=== PATIENT | female | born 1995 | race Caucasian/White ===

== ENCOUNTER 2022-09-22 05:32 | Inpatient (IN) ==
[2022-09-22] MEDS ORDERED: SODIUM CHLORIDE 0.9% 1000ML 1,000 ML IV STA (05:40)
[2022-09-22] MEDS ORDERED: ONDANSETRON INJ 2 MG/ML 2 ML VIAL IV STA (05:40)
[2022-09-22] MEDS ORDERED: FAMOTIDINE 20MG IV PUSH 20 MG/5 ML SYR IV STA (06:02)
--- NOTE | 2022-09-22 06:05 | Emergency Department Note ---
Impression & Plan Abdominal pain, epigastric, UTI (urinary tract infection) Case signed out to Dr. Jackson at change of shift ED Provider Note NAME: JAYLEN MICHAUD AGE: 27 SEX: F ARRIVES VIA: Walk-In INFORMANT: Patient and her mother ED PROVIDER(S): Isi William DO CHIEF COMPLAINT: Nausea/vomiting PLAN: Disposition: Case was signed out to Dr. Jackson at change of shift Condition: Fair MEDICAL DECISION MAKING: This is a 27-year-old female patient who presents to the emergency department complaining of epigastric abdominal pain, nausea and vomiting. Patient has had episodes of intermittent nausea/vomiting and burping over the past 4 days. She has had episodes similar to this previously but they have not lasted quite this long. Laboratory studies show elevated transaminases and total bilirubin as well as evidence of urinary tract infection. Patient was treated with IV Rocephin for her UTI. She will go for right upper quadrant ultrasound to further evaluate the gallbladder. The case will be signed out to Dr. Jackson at change of shift awaiting results of the ultrasound. Triage Nursing notes reviewed and agree with them. Additional history obtained from patient's mother is at the bedside Vital Signs: reviewed and unremarkable Differential diagnosis: GERD, viral gastritis, acute cholecystitis, pancreatitis ER treatment provided: IV normal saline bolus IV Pepcid IV Zofran IV Rocephin Diagnostics interpreted by me: Laboratory studies: See below Imaging studies: Right upper quadrant ultrasound: Pending HPI: 27/F arrives for evaluation of epigastric abdominal pain and nausea/vomiting. Patient has had episodes of intermittent nausea/vomiting and burping over the past 4 days with associated epigastric abdominal pain. Patient has had generalized bloating with intermittent episodes of increasing epigastric discomfort and persistent vomiting. PAST MEDICAL HISTORY:None PAST SURGICAL HISTORY:None FAMILY HISTORY:None SOCIAL HISTORY:Patient lives in [place] and works as an portfolio accountant; she rarely drinks alcohol HOME MEDICATIONS:None ALLERGIES:None VITALS:See Below PHYSICAL EXAMINATION: HEENT: Head - normocephalic and atraumatic. Pupils are equal, round, and reactive to light. Extraocular eye muscles are intact, and sclera are anicteric. Nose - moist nasal mucosa without discharge. Mouth - moist buccal mucosa. Oropharynx is nonerythematous and there is no tonsillar exudate or e roman noted. Neck: Supple; no cervical lymphadenopathy or thyromegaly Heart: Regular rate and rhythm. There is a normal S1 and S2 with no murmurs, clicks, or gallops appreciated. Lungs: Clear to auscultation bilaterally with no wheezes, rales, or rhonchi. Abdomen: Soft, completely nontender, nondistended, with good bowel sounds. There are no palpable pulsatile masses or hepatosplenomegaly. There is no guarding, rigidity, or rebound noted. Extremities: No evidence of cyanosis, clubbing, or edema. There are easily palpable peripheral pulses. Skin: warm and dry with good turgor and no rashes. ED COURSE: Times/Reassessments: 545: Patient was evaluated in room A-11. A complete history and physical was performed. An IV lock was initiated and labs were drawn as above. The patient was given dose of IV Zofran for nausea and a dose of IV Pepcid. Started on normal saline drip. Upon repeat evaluation, patient went on to tell me that she has been having some urinary symptoms which include cramping with urination. I reviewed some laboratory test there is evidence of UTI. The patient will be treated with IV Rocephin. She will go for ultrasound of her gallbladder. The case was signed out to Dr. Jackson at change of shift awaiting results of a right upper quadrant ultrasound to further evaluate the gallbladder. Isi William DO Past Med/Surg History Social History Smoking Status: Never smoker Preferred Language: Occitan Feels Safe at Home: Yes Results & Data (ED) Vital Signs Vital Signs - 24 hr 09/22/22 05:38 09/22/22 06:15 09/22/22 06:30 Temperature 36.7 C Temperature Source Temporal Artery Scan Pulse Rate 83 57 L Pulse Rate from SpO2 Sensor Respiratory Rate 18 Respiratory Effort / Characteristics Non-Labored Spontaneous Respiratory Depth Normal Blood Pressure 132/85 145/65 H Blood Pressure Mean 100 91 Blood Pressure Position Sitting Pulse Oximetry 99 Oxygen Delivery Method Room Air Sepsis Recent Fever Within 48 Hours No Sepsis New/Unexplained Change in Mental Status No Sepsis Action Taken by Nursing No Action Required 09/22/22 06:30 Temperature Temperature Source Pulse Rate 61 Pulse Rate from SpO2 Sensor 62 Respiratory Rate 19 Respiratory Effort / Characteristics Respiratory Depth Blood Pressure Blood Pressure Mean Blood Pressure Position Pulse Oximetry 100 Oxygen Delivery Method Room Air Sepsis Recent Fever Within 48 Hours Sepsis New/Unexplained Change in Mental Status Sepsis Action Taken by Nursing Laboratory Data 09/22/22 05:54 09/22/22 05:54 Lab Results 09/22/22 09/22/22 09/22/22 Range/Units 05:54 05:54 05:54 WBC 8.86 (4.8-10.8) K/ul RBC 4.78 (4.20-5.40) M/uL Hgb 12.6 (12.0-16.0) g/dl Hct 39.2 (37.0-47.0) % MCV 82.0 (80.0-100.0) fL MCH 26.4 (25.0-34.0) pg MCHC 32.1 (32.0-36.0) g/dL RDW Std Deviation 43.8 (36.4-46.3) fL RDW Coeff of Jessica 14.8 H (11.5-14.5) % Plt Count 381 (130-400) K/uL MPV 9.8 (9.4-12.4) fL Immature Gran % (Auto) 0.5 % Neut % (Auto) 73.0 % Lymph % (Auto) 17.5 % Mellette % (Auto) 7.3 % Eos % (Auto) 1.4 % Baso % (Auto) 0.3 % Neut # (Auto) 6.47 (1.40-6.50) K/uL Lymph # (Auto) 1.55 (1.2-3.4) K/uL Mellette # (Auto) 0.65 H (0.11-0.59) K/uL Eos # (Auto) 0.12 (0-0.50) K/uL Baso # (Auto) 0.03 (0-0.2) K/uL Immature Gran # (Auto) 0.04 (0.01-0.20) K/uL Sodium 135 L (136-145) mmol/L Potassium 4.4 (3.5-5.1) mmol/L Chloride 101 (98-107) mmol/L Carbon Dioxide 24 (21-32) mmol/L Anion Gap 10 (3-11) BUN 9 (6-23) mg/dl Creatinine 0.67 (0.6-1.2) mg/dl Est Cr Clr Drug Dosing 177.6 ml/min Est GFR ( Amer) 140.6 ml/min Est GFR (Non-Af Amer) 121.3 ml/min BUN/Creatinine Ratio 13.4 (10-20) Glucose 118 H (70-99(Fasting)) mg/dl Calcium 9.1 (8.6-10.3) mg/dl Total Bilirubin 1.9 H (0.2-1.0) mg/dl AST 567 H (13-39) U/L Alkaline Phosphatase 202 H (34-104) U/L Total Protein 7.7 (6.0-8.3) gm/dl Albumin 4.2 (3.4-5.0) gm/dl Globulin 3.5 (2.5-4.0) gm/dl Albumin/Globulin Ratio 1.2 (0.9-2) Lipase 18 (11-82) U/L HCG, Qual Negative (Negative) Urine Color Urine Appearance (Clear) Urine pH (4.5-7.5) Ur Specific Elwin (1.000-1.030) Urine Protein (Negative) Urine Glucose (UA) (Negative) Urine Ketones (Negative) Urine Blood (Negative) Urine Nitrite (Negative) Urine Bilirubin (Negative) Urine Urobilinogen (Negative) Ur Leukocyte Esterase (Negative) Urine WBC (Auto) (0-5) /hpf Urine RBC (Auto) (0-4) /hpf U Hyaline Cast (Auto) (0-5) /lpf U Epithel Cells (Auto) (0-5) /lpf Urine Bacteria (Auto) (Negative) Urine Crystals Calcium Oxalate Crystal (None Prsent) Amorphous Sediment (None Prsent) 09/22/22 Range/Units 05:54 WBC (4.8-10.8) K/ul RBC (4.20-5.40) M/uL Hgb (12.0-16.0) g/dl Hct (37.0-47.0) % MCV (80.0-100.0) fL MCH (25.0-34.0) pg MCHC (32.0-36.0) g/dL RDW Std Deviation (36.4-46.3) fL RDW Coeff of Jessica (11.5-14.5) % Plt Count (130-400) K/uL MPV (9.4-12.4) fL Immature Gran % (Auto) % Neut % (Auto) % Lymph % (Auto) % Mellette % (Auto) % Eos % (Auto) % Baso % (Auto) % Neut # (Auto) (1.40-6.50) K/uL Lymph # (Auto) (1.2-3.4) K/uL Mellette # (Auto) (0.11-0.59) K/uL Eos # (Auto) (0-0.50) K/uL Baso # (Auto) (0-0.2) K/uL Immature Gran # (Auto) (0.01-0.20) K/uL Sodium (136-145) mmol/L Potassium (3.5-5.1) mmol/L Chloride (98-107) mmol/L Carbon Dioxide (21-32) mmol/L Anion Gap (3-11) BUN (6-23) mg/dl Creatinine (0.6-1.2) mg/dl Est Cr Clr Drug Dosing ml/min Est GFR ( Amer) ml/min Est GFR (Non-Af Amer) ml/min BUN/Creatinine Ratio (10-20) Glucose (70-99(Fasting)) mg/dl Calcium (8.6-10.3) mg/dl Total Bilirubin (0.2-1.0) mg/dl AST (13-39) U/L Alkaline Phosphatase (34-104) U/L Total Protein (6.0-8.3) gm/dl Albumin (3.4-5.0) gm/dl Globulin (2.5-4.0) gm/dl Albumin/Globulin Ratio (0.9-2) Lipase (11-82) U/L HCG, Qual (Negative) Urine Color Dark Yellow Urine Appearance Cloudy A (Clear) Urine pH 5.0 (4.5-7.5) Ur Specific Elwin 1.037 H (1.000-1.030) Urine Protein Trace H (Negative) Urine Glucose (UA) Negative (Negative) Urine Ketones Trace H (Negative) Urine Blood Negative (Negative) Urine Nitrite Positive A (Negative) Urine Bilirubin 1+ H (Negative) Urine Urobilinogen Negative (Negative) Ur Leukocyte Esterase Trace H (Negative) Urine WBC (Auto) 1-5 (0-5) /hpf Urine RBC (Auto) 0-4 (0-4) /hpf U Hyaline Cast (Auto) 5-10 H (0-5) /lpf U Epithel Cells (Auto) >30 H (0-5) /lpf Urine Bacteria (Auto) 2+ H (Negative) Urine Crystals Not Reportable Calcium Oxalate Crystal Present A (None Prsent) Amorphous Sediment Present A (None Prsent) Administered Medications Discontinued Medications Sodium Chloride (Nss 1000ml) 1,000 mls @ 999 mls/hr IV .Q1H1M STA Stop: 09/22/22 06:40 Last Admin: 09/22/22 05:57 Dose: 999 mls/hr Documented By: Famotidine (Pepcid 20mg Iv Push) 20 mg in 5 mls @ 2.5 mls/min IV NOW STA Stop: 09/22/22 06:03 Last Admin: 09/22/22 06:05 Dose: 2.5 mls/min Documented By: Ondansetron HCl (Ondansetron Inj 2 Mg/Ml 2 Ml Vial) 4 mg IV NOW STA Stop: 09/22/22 05:41 Last Admin: 09/22/22 05:59 Dose: 4 mg Documented By: Discharge Plan Visit Data Chief Complaint: Abdominal Pain Stated Complaint: ABDOMINAL PAIN, VOMITING, NAUSEA ED Provider: Sid Jackson Discharge Problem: Abdominal pain, epigastric, UTI (urinary tract infection) Forms Stand Alone Forms: [facility] Referrals Referrals: PCP,NO [Primary Care Provider] -
[2022-09-22 06:11] LABS: Appearance Urine Cloudy (Clear); Blood Urine Negative (Negative); Color Urine Dark Yellow; Glucose Urine UA Negative (Negative); Ketones Urine Trace (Negative); Leukocyte Esterase Urine Trace (Negative); Nitrite Urine Positive (Negative); Protein Urine Trace (Negative); Specific Gravity Urine 1.037 (1.000-1.030); Urobilinogen Urine Negative (Negative)
[2022-09-22 06:12] LABS: Basophils # (auto) 0.03 K/uL (0-0.2); Basophils % (auto) 0.3 %; Eosinophils # (auto) 0.12 K/uL (0-0.50); Eosinophils % (auto) 1.4 %; Hematocrit (blood only) 39.2 % (37.0-47.0); Hemoglobin 12.6 g/dl (12.0-16.0); Immature Granulocytes # (auto) 0.04 K/uL (0.01-0.20); Immature Granulocytes % (auto) 0.5 %; Lymphocytes # (auto) 1.55 K/uL (1.2-3.4); Lymphocytes % (auto) 17.5 %; Mean Corpuscular Hemoglobin 26.4 pg (25.0-34.0); Mean Corpuscular Hgb Conc 32.1 g/dL (32.0-36.0); Mean Platelet Volume 9.8 fL (9.4-12.4); Monocytes # (auto) 0.65 K/uL (0.11-0.59); Monocytes % (auto) 7.3 %; Neutrophils # (auto) 6.47 K/uL (1.40-6.50); Platelet Count 381 K/uL (130-400); RDW Coefficient of Variation 14.8 % (11.5-14.5); RDW Standard Deviation 43.8 fL (36.4-46.3); Red Blood Count 4.78 M/uL (4.20-5.40); White Blood Count 8.86 K/ul (4.8-10.8)
[2022-09-22 06:28] LABS: Bilirubin Urine 1+ (Negative)
[2022-09-22 06:29] LABS: Albumin Globulin Ratio 1.2 (0.9-2); Albumin Level 4.2 gm/dl (3.4-5.0); BUN Creatinine Ratio 13.4 (10-20); Bilirubin,Total 1.9 mg/dl (0.2-1.0); Calcium 9.1 mg/dl (8.6-10.3); Creatinine Clr Calc Pharmacy 177.6 ml/min; Est GFR (African American) 140.6 ml/min; Est GFR (Non-African American) 121.3 ml/min; Globulin 3.5 gm/dl (2.5-4.0); Potassium 4.4 mmol/L (3.5-5.1); Total Protein 7.7 gm/dl (6.0-8.3)
[2022-09-22 06:35] LABS: Pregnancy Test, Serum Negative (Negative)
[2022-09-22 06:38] LABS: Amorphous Sediment Urine Present (None Prsent)
[2022-09-22 06:39] LABS: Calcium Oxalate Crystals Urine Present (None Prsent)
[2022-09-22 06:40] LABS: RBC Urine Automated 0-4 /hpf (0-4)
[2022-09-22 06:43] LABS: Bacteria Urine Automated 2+ (Negative); Epithelial Cell Urine Auto >30 /lpf (0-5)
[2022-09-22] MEDS ORDERED: cefTRIAXone SODIUM 1,000 MG in DEXTROSE 5% AD-VAN 50 ML IV STA (06:48)
--- NOTE | 2022-09-22 07:26 | Emergency Department Note ---
ED Visit Note Patient is a 27-year-old female who was signed out to me by Dr. William awaiting ultrasound. She has epigastric abdominal pain. Labs are suggestive of choledocholithiasis. Ultrasound was unremarkable. D/w Dr. Dowling for admission and further eval. Patient was discussed with gastroenterology and the hospitalist for further evaluation management treatment and work-up. .
--- NOTE | 2022-09-22 07:52 | Ultrasound Report ---
ULTRASOUND RIGHT UPPER QUADRANT ABDOMEN CLINICAL HISTORY: Nausea and vomiting. COMPARISON STUDY: No priors. TECHNIQUE: Real-time, grayscale, and color flow sonography of the right upper quadrant of the abdomen was performed. Images are reviewed in the transverse and longitudinal planes. FINDINGS: Liver: The liver is normal in size and echotexture. There is no intrahepatic biliary ductal dilatatio n. The main portal vein is patent. Gallbladder: The gallbladder is normal in appearance. No gallstones are identified. There is no gallb ladder wall thickening or pericholecystic fluid. A sonographic Zaysa's sign is reportedly absent. Th e common bile duct measures up to 0.5 cm in diameter. Pancreas: Visualized portions of the pancreatic head and body are normal in appearance. Right kidney: Survey images of the right kidney demonstrate normal size and echotexture. There is no hydronephrosis. Ascites: None. IMPRESSION: No acute sonographic abnormality is seen in the right upper quadrant. No gallstones are i dentified. ACT 112: Negative or not required by law. Electronically signed by: Luis Rider M.D. 09/22/2022 7:50 AM
--- NOTE | 2022-09-22 09:12 | History & Physical Report ---
Date of Service September 22, 2022 Assessment & Plan (1) Abdominal pain, epigastric: Plan: This may simply be a viral syndrome. Liver function enzymes are elevated however. Gallbladder ultrasound is negative. Will obtain MRCP. Clear liquids for now with IV fluids. Symptomatic control measures. We will consult GI if MRCP is abnormal (2) UTI (urinary tract infection): Plan: Urine cultures pending. Continue intravenous Rocephin (3) Obesity: Plan: Weight loss recommended Plan Anticipate eventual discharge to home History of Present Illness Chief Complaint: Epigastric discomfort, nausea and vomiting Primary Care Provider: NO PCP 27-year-old white female in good health except for obesity. For the past 3 to 4 days she has had epigastric pain nausea and vomiting. She presented to the ED for evaluation since she began feeling dizzy and the urine became darker. She apparently has some mild volume depletion. Liver function enzymes are elevated. Gallbladder ultrasound was negative. This probably represents a viral illness although choledocholithiasis needs to be ruled out. She will be placed in observation status. MRCP is pending. If this is abnormal then GI consultation will be requested. She denies any recent alcohol intake, frequent marijuana use, or illicit drug use. She also has an apparent UTI. She has received Rocephin which will be discontinued. Urine cultures pending. Allergies Allergy/AdvReac Type Severity Reaction Status Date / Time No Known Allergies Allergy Unverified 09/22/22 09:05 Home Medications Medication Instructions Recorded Confirmed Type No Known Home Medications 09/22/22 09/22/22 History Past Med/Surg History Social History Smoking Status: Never smoker Preferred Language: Lao Feels Safe at Home: Yes Review of Systems Review of Systems: Constitutional-no fever or chills ENT-no blurred vision, no double vision, no epistaxis, no sore throat Respiratory-no cough, no wheezing, no shortness of breath Cardiac-no palpitations, no chest pain, no syncope GI-epigastric discomfort. Nausea and vomiting. No hematemesis. No melena -urine has become dark and foul-smelling. No urinary retention, no urinary incontinence, no hematuria Musculoskeletal-no joint pain, no muscle tenderness Skin-no bruising, no rashes, no pruritus Neuro-no isolated weakness, no paresthesia, no weakness Psych-no depression, no anxiety Physical Exam Physical Exam: General-alert and oriented x3. Obese . No distress HEENT-head atraumatic and normocephalic, pupils equal and reactive to light, extraocular muscles intact Neck-no lymphadenopathy or thyromegaly, trachea midline Chest-clear to auscultation percussion. No rales wheezing or rhonchi Cardiac-regular rate and rhythm, normal S1 and S2 Abdomen-normal bowel sounds, no hepatosplenomegaly. Epigastric tenderness. No rebound or guarding. No right upper quadrant tenderness Extremities-no cyanosis, clubbing, or edema Neuro-cranial nerves II through XII intact, motor and sensory function within normal limits, strength symmetrical , no focal deficits Psych-normal affect, normal mood Results & Data Results & Data Vital Signs (Past 12 Hours) Vital Signs Temp Pulse Resp BP Pulse Ox O2 Del Method 09/22/22 08:30 65 16 09/22/22 08:20 61 18 09/22/22 08:10 57 L 15 09/22/22 08:00 56 L 16 09/22/22 08:00 135/73 09/22/22 07:50 75 22 09/22/22 07:40 66 18 09/22/22 07:34 66 20 09/22/22 07:34 132/64 09/22/22 07:01 58 L 16 98 09/22/22 07:01 145/56 H 09/22/22 07:00 58 L 14 98 09/22/22 06:50 61 23 99 09/22/22 06:30 61 19 100 Room Air 09/22/22 06:30 145/65 H 09/22/22 06:15 57 L 09/22/22 05:38 36.7 C 83 18 132/85 99 Room Air Laboratory Results 09/22/22 05:54 09/22/22 05:54 Code Status & VTE Plan Code Status Full code PG Care Time/CCT Total # of Minutes Spent Total Time Spent with Patient: Total time spent is greater than 50% in coordination of care (as documented) at patient's floor/unit and/or counseling patient: Coding Level of Care Code 96699 INT INP/OBS CARE 3/75MIN Diagnoses Abdominal pain, epigastric R10.13 UTI (urinary tract infection) N39.0 Obesity E66.9
--- NOTE | 2022-09-22 14:43 | Magnetic Resonance Report ---
MRCP CLINICAL HISTORY: Elevated hepatic transaminases. Nausea and vomiting. Bloating. COMPARISON STUDY: Abdominal ultrasound dated 09/22/2022. TECHNIQUE: Abdominal MRCP is performed utilizing various T2 sequences in the axial and coronal planes . IV contrast was not administered for this examination. 3-D reformats are created and assessed. FINDINGS: There are 2 large gallstones in the fundal region. An additional impacted 1.8 cm stone is seen in the gallbladder neck. There is no gallbladder wall thickening or MRI evidence of acute cholecystitis. Th ere is no intra or extrahepatic biliary ductal dilatation. The common bile duct measures up to 3.5 mm diameter. No intraluminal filling defects are seen to suggest choledocholithiasis. The pancreatic du ct is normal in caliber. The unenhanced liver, spleen, adrenal glands, kidneys, and pancreas are normal as visualized. There i s no abdominal ascites. The abdominal aorta is normal in caliber. No pleural effusion is identified. The lung bases are clear as imaged. IMPRESSION: 1. Large gallstones as above, with a 1.8 cm impacted stone in the region of the gallbladder neck. The re is no MR evidence of acute cholecystitis at the time of examination. 2. There is no intra or extrahepatic biliary duct dilatation or evidence of choledocholithiasis. Electronically signed by: Luis Rider M.D. 09/22/2022 2:40 PM
[2022-09-22] MEDS: PANTOprazole 40 MG in SYRINGE 0 ML IV SCH ×2 (15:05→23:29)
[2022-09-22] MEDS: SODIUM CHLORIDE 0.9% 1000ML 1,000 ML IV SCH (15:05)
[2022-09-22 15:36] LABS: Basophils # (auto) 0.03 K/uL (0-0.2); Basophils % (auto) 0.3 %; Eosinophils # (auto) 0.16 K/uL (0-0.50); Eosinophils % (auto) 1.7 %; Hematocrit (blood only) 38.3 % (37.0-47.0); Hemoglobin 12.4 g/dl (12.0-16.0); Immature Granulocytes # (auto) 0.03 K/uL (0.01-0.20); Immature Granulocytes % (auto) 0.3 %; Lymphocytes # (auto) 2.12 K/uL (1.2-3.4); Lymphocytes % (auto) 22.7 %; Mean Corpuscular Hemoglobin 26.7 pg (25.0-34.0); Mean Corpuscular Hgb Conc 32.4 g/dL (32.0-36.0); Mean Corpuscular Volume 82.4 fL (80.0-100.0); Mean Platelet Volume 9.8 fL (9.4-12.4); Monocytes # (auto) 0.66 K/uL (0.11-0.59); Monocytes % (auto) 7.1 %; Neutrophils # (auto) 6.33 K/uL (1.40-6.50); Neutrophils % (auto) 67.9 %; Platelet Count 348 K/uL (130-400); RDW Coefficient of Variation 14.9 % (11.5-14.5); RDW Standard Deviation 44.3 fL (36.4-46.3); Red Blood Count 4.65 M/uL (4.20-5.40); White Blood Count 9.33 K/ul (4.8-10.8)
[2022-09-22 15:46] LABS: Alanine Aminotransferase 489 U/L (7-52); Albumin Globulin Ratio 1.2 (0.9-2); Albumin Level 3.9 gm/dl (3.4-5.0); Alkaline Phosphatase 197 U/L (34-104); Anion Gap 6 (3-11); Aspartate Aminotransferase 376 U/L (13-39); BUN Creatinine Ratio 10.9 (10-20); Bilirubin,Total 1.2 mg/dl (0.2-1.0); Blood Urea Nitrogen 6 mg/dl (6-23); Calcium 8.6 mg/dl (8.6-10.3); Carbon Dioxide 25 mmol/L (21-32); Chloride 105 mmol/L (98-107); Creatinine Clr Calc Pharmacy 216.4 ml/min; Est GFR (African American) > 150.0 ml/min; Est GFR (Non-African American) 129.5 ml/min; Globulin 3.2 gm/dl (2.5-4.0); Glucose 82 mg/dl (70-99(Fasting)); Potassium 3.9 mmol/L (3.5-5.1); Sodium 136 mmol/L (136-145); Total Protein 7.1 gm/dl (6.0-8.3)
[2022-09-22] MEDS ORDERED: IBUPROFEN 600 MG TAB PO PRN (20:51)
[2022-09-22] MEDS: ONDANSETRON INJ 2 MG/ML 2 ML VIAL IV PRN (21:10)
[2022-09-23] MEDS: SODIUM CHLORIDE 0.9% 1000ML 1,000 ML IV SCH ×2 (02:59→18:39)
--- NOTE | 2022-09-23 08:03 | Surgery Consultation ---
Date of Consultation September 23, 2022 Assessment & Plan (1) Acute calculous cholecystitis: 27-year-old obese female with cholelithiasis and what appears to be acute on chronic cholecystitis plan for robotic assisted laparoscopic cholecystectomy with possible cholangiogram risks discussed to include but not limited to bleeding, infection, retained stone, bile leak, open surgery, damage to surrounding structures including bile duct, need for future or more extensive surgery, failure to treat symptoms, and risks of anesthesia. Potential discharge tomorrow UTI management per medicine (2) Obesity: (3) UTI (urinary tract infection): History of Present Illness Reason for Consultation: Abdominal pain Attending Physician: Cristofer Solis MD History of Present Illness 27-year-old female admitted through the emergency department for chief complaint of epigastric abdominal pain and nausea x4 days. She does related to starting after she ate but does not recall her meal. She has had 2 episodes in the past that were short in duration but similar. She was seen in the emergency department diagnosed with a UTI and a right upper quadrant ultrasound revealed no cholelithiasis. She did have some elevated liver enzymes, and an MRCP showed large gallstones, 1 impacted in the neck, no choledocholithiasis, and no evidence of cholecystitis. She still has some nausea controlled with Zofran, but is not any pain but relates that to not eating. No prior abdominal surgeries, otherwise healthy except for obesity. Allergies Allergy/AdvReac Type Severity Reaction Status Date / Time nickel Allergy Intermediate Rash Verified 09/23/22 01:28 Home Medications Medication Instructions Recorded Confirmed Type No Known Home Medications 09/22/22 09/22/22 History Patient History Medical History (Updated 09/23/22 @ 09:36 by Maurilio Anaya DO, FACS) Acute calculous cholecystitis Social History Smoking Status: Never smoker Second Hand Exposure: Yes (Mom smoked when pt child); Hx Alcohol Use: Yes Alcohol type: wine Hx Substance Use: Yes Last Used Substance: Days (ago) Preferred Language: Greek Communication Ability: Effective Vmware Architect Required: No Beliefs That Will Affect Care: None Current Living Situation: Alone Feels Safe at Home: Yes Assistive Devices: Glasses Review of Systems Review of Systems: All systems reviewed & are unremarkable except as noted in HPI & below Physical Exam Constitutional: WD/WN, vitals as above + morbidly obese Respiratory: normal respiratory effort, lungs clear to auscultation Cardiovascular: RRR, no murmur, no edema Gastrointestinal (Abdomen): Percussion/Palpation: + abdomen tender (Mild tenderness to palpation in right upper) and abdomen soft; no guarding, abdomen not rigid, no hepatosplenomegaly and no hernia Results & Data Laboratory Results Laboratory Results - last 24 hr 09/22/22 09/22/22 09/23/22 15:05 15:05 07:51 WBC 9.33 8.37 RBC 4.65 4.56 Hgb 12.4 12.1 Hct 38.3 37.3 MCV 82.4 81.8 MCH 26.7 26.5 MCHC 32.4 32.4 RDW Std Deviation 44.3 43.4 RDW Coeff of Jessica 14.9 H 14.7 H Plt Count 348 323 MPV 9.8 10.0 Immature Gran % (Auto) 0.3 0.5 Neut % (Auto) 67.9 65.1 Lymph % (Auto) 22.7 24.9 Bee % (Auto) 7.1 6.7 Eos % (Auto) 1.7 2.7 Baso % (Auto) 0.3 0.1 Neut # (Auto) 6.33 5.45 Lymph # (Auto) 2.12 2.08 Bee # (Auto) 0.66 H 0.56 Eos # (Auto) 0.16 0.23 Baso # (Auto) 0.03 0.01 Immature Gran # (Auto) 0.03 0.04 Sodium 136 Potassium 3.9 Chloride 105 Carbon Dioxide 25 Anion Gap 6 BUN 6 Creatinine 0.55 L Est Cr Clr Drug Dosing 216.4 Est GFR ( Amer) > 150.0 Est GFR (Non-Af Amer) 129.5 BUN/Creatinine Ratio 10.9 Glucose 82 Calcium 8.6 Total Bilirubin 1.2 H AST 376 H ALT 489 H Alkaline Phosphatase 197 H Total Protein 7.1 Albumin 3.9 Globulin 3.2 Albumin/Globulin Ratio 1.2 09/23/22 07:51 WBC RBC Hgb Hct MCV MCH MCHC RDW Std Deviation RDW Coeff of Jessica Plt Count MPV Immature Gran % (Auto) Neut % (Auto) Lymph % (Auto) Bee % (Auto) Eos % (Auto) Baso % (Auto) Neut # (Auto) Lymph # (Auto) Bee # (Auto) Eos # (Auto) Baso # (Auto) Immature Gran # (Auto) Sodium 137 Potassium 3.8 Chloride 107 Carbon Dioxide 24 Anion Gap 6 BUN 6 Creatinine 0.63 Est Cr Clr Drug Dosing 180.7 Est GFR ( Amer) 143.5 Est GFR (Non-Af Amer) 123.8 BUN/Creatinine Ratio 9.5 L Glucose 91 Calcium 8.4 L Total Bilirubin 0.8 AST 149 H ALT 367 H Alkaline Phosphatase 169 H Total Protein 6.7 Albumin 3.7 Globulin 3.0 Albumin/Globulin Ratio 1.2 Diagnostic Findings ULTRASOUND RIGHT UPPER QUADRANT ABDOMEN CLINICAL HISTORY: Nausea and vomiting. COMPARISON STUDY: No priors. TECHNIQUE: Real-time, grayscale, and color flow sonography of the right upper quadrant of the abdomen was performed. Images are reviewed in the transverse and longitudinal planes. FINDINGS: Liver: The liver is normal in size and echotexture. There is no intrahepatic biliary ductal dilatation. The main portal vein is patent. Gallbladder: The gallbladder is normal in appearance. No gallstones are identified. There is no gallbladder wall thickening or pericholecystic fluid. A sonographic Zayas's sign is reportedly absent. The common bile duct measures up to 0.5 cm in diameter. Pancreas: Visualized portions of the pancreatic head and body are normal in appearance. Right kidney: Survey images of the right kidney demonstrate normal size and echotexture. There is no hydronephrosis. Ascites: None. IMPRESSION: No acute sonographic abnormality is seen in the right upper quadrant. No gallstones are identified. ACT 112: Negative or not required by law. Electronically signed by: Luis Rider M.D. 09/22/2022 7:50 AM MRCP CLINICAL HISTORY: Elevated hepatic transaminases. Nausea and vomiting. Bloating. COMPARISON STUDY: Abdominal ultrasound dated 09/22/2022. TECHNIQUE: Abdominal MRCP is performed utilizing various T2 sequences in the axial and coronal planes. IV contrast was not administered for this examination. 3-D reformats are created and assessed. FINDINGS: There are 2 large gallstones in the fundal region. An additional impacted 1.8 cm stone is seen in the gallbladder neck. There is no gallbladder wall thickening or MRI evidence of acute cholecystitis. There is no intra or extrahepatic biliary ductal dilatation. The common bile duct measures up to 3.5 mm diameter. No intraluminal filling defects are seen to suggest choledocholithiasis. The pancreatic duct is normal in caliber. The unenhanced liver, spleen, adrenal glands, kidneys, and pancreas are normal as visualized. There is no abdominal ascites. The abdominal aorta is normal in caliber. No pleural effusion is identified. The lung bases are clear as imaged. IMPRESSION: 1. Large gallstones as above, with a 1.8 cm impacted stone in the region of the gallbladder neck. There is no MR evidence of acute cholecystitis at the time of examination. 2. There is no intra or extrahepatic biliary duct dilatation or evidence of choledocholithiasis. Electronically signed by: Luis Rider M.D. 09/22/2022 2:40 PM PG Care Time/CCT Total # of Minutes Spent Total Time Spent with Patient: Total time spent is greater than 50% in coordination of care (as documented) at patient's floor/unit and/or counseling patient: Coding Level of Care Code 07964 IN/OBS CONSULT LVL 3,45M Diagnoses Acute calculous cholecystitis K80.00 Obesity E66.9 UTI (urinary tract infection) N39.0
[2022-09-23] MEDS: cefTRIAXone SODIUM 2,000 MG in DEXTROSE 5% 50 ML IV SCH (08:16)
[2022-09-23] MEDS: PANTOprazole 40 MG in SYRINGE 0 ML IV SCH ×2 (08:18→21:01)
[2022-09-23 08:37] LABS: Basophils # (auto) 0.01 K/uL (0-0.2); Basophils % (auto) 0.1 %; Eosinophils # (auto) 0.23 K/uL (0-0.50); Eosinophils % (auto) 2.7 %; Hematocrit (blood only) 37.3 % (37.0-47.0); Hemoglobin 12.1 g/dl (12.0-16.0); Immature Granulocytes # (auto) 0.04 K/uL (0.01-0.20); Immature Granulocytes % (auto) 0.5 %; Lymphocytes # (auto) 2.08 K/uL (1.2-3.4); Lymphocytes % (auto) 24.9 %; Mean Corpuscular Hemoglobin 26.5 pg (25.0-34.0); Mean Corpuscular Hgb Conc 32.4 g/dL (32.0-36.0); Mean Corpuscular Volume 81.8 fL (80.0-100.0); Monocytes # (auto) 0.56 K/uL (0.11-0.59); Monocytes % (auto) 6.7 %; Neutrophils # (auto) 5.45 K/uL (1.40-6.50); Neutrophils % (auto) 65.1 %; Platelet Count 323 K/uL (130-400); RDW Coefficient of Variation 14.7 % (11.5-14.5); RDW Standard Deviation 43.4 fL (36.4-46.3); Red Blood Count 4.56 M/uL (4.20-5.40); White Blood Count 8.37 K/ul (4.8-10.8)
[2022-09-23 08:54] LABS: Albumin Globulin Ratio 1.2 (0.9-2); Albumin Level 3.7 gm/dl (3.4-5.0); BUN Creatinine Ratio 9.5 (10-20); Bilirubin,Total 0.8 mg/dl (0.2-1.0); Calcium 8.4 mg/dl (8.6-10.3); Creatinine Clr Calc Pharmacy 180.7 ml/min; Est GFR (African American) 143.5 ml/min; Est GFR (Non-African American) 123.8 ml/min; Potassium 3.8 mmol/L (3.5-5.1); Total Protein 6.7 gm/dl (6.0-8.3)
[2022-09-23] MEDS ORDERED: INDOCYANINE GREEN 25 MG VIAL INJ ONE (09:42)
--- NOTE | 2022-09-23 11:02 | XRay Report ---
XR chest 1V portable HISTORY: Nausea. Vomiting. Preop evaluation. Cholelithiasis. COMPARISON: None. FINDINGS: The lungs are clear. Cardiac silhouette is normal in size. No pleural effusions. No pneumot horax. IMPRESSION: No acute process. ACT 112: Negative or not required by law. Electronically signed by: Rafat Francisco M.D. 09/23/2022 11:00 AM
--- NOTE | 2022-09-23 12:45 | Anesthesiology Consultation ---
Date of Service September 23, 2022 Assessment & Plan (1) Encounter for pre-operative examination: Chart Review Chart Review: Acceptable Risk for Surgery History Surgery Operation Date: 09/23/22 10:50 Proposed Procedures p Robotic Laparoscopic Cholecystectomy - Maurilio Anaya DO, FACS Height/Weight Height: 5 ft 6 in Weight: 122.47 kg Allergies Allergy/AdvReac Type Severity Reaction Status Date / Time nickel Allergy Intermediate Rash Verified 09/23/22 01:28 Medications Home Medications Medication Instructions Recorded Confirmed Last Taken No Known Home Medications 09/22/22 09/22/22 Unknown Active Medications Generic Name Dose Route Start Last Admin Trade Name Freq PRN Reason Stop Dose Admin Ceftriaxone Sodium 2,000 mg/ 70 mls @ 100 mls/hr 09/23/22 07:30 09/23/22 09:42 Dextrose IV 09/28/22 07:29 Infused Q24H EVON Infusion Protocol Sodium Chloride 1,000 mls @ 80 mls/hr 09/22/22 13:52 09/23/22 12:03 Nss 1000ml IV 10/22/22 13:51 0 mls/hr .[id number] EVON Infusion Pantoprazole Sodium 40 mg/ 10 mls @ 5 mls/min 09/22/22 14:00 09/23/22 08:18 Syringe IV 10/22/22 13:59 5 mls/min BID EVON Administration Ibuprofen 600 mg 09/22/22 20:51 09/22/22 23:03 Ibuprofen 600 Mg Tab PO 10/22/22 20:50 600 mg Q6H PRN Administration pain Ondansetron HCl 4 mg 09/22/22 20:39 09/22/22 21:10 Ondansetron Inj 2 Mg/Ml 2 Ml Vial IV 10/22/22 20:38 4 mg Q6H PRN Administration Nausea And Vomiting NPO Date Last Intake of Fluids: 09/23/22 Time Last Intake of Fluids: 06:30 Last Intake of Fluids Comment: water Date Last Intake of Solids: 09/22/22 Time Last Intake of Solids: 22:00 Past Medical History Medical History Acute calculous cholecystitis Social History Smoking Status: Never smoker Hx Alcohol Use: Yes Alcohol type: wine alcohol intake frequency: holidays/special occasions only Hx Substance Use: Yes substance use type: marijuana Last Used Substance: Days (ago) Physical Exam Vital Signs Last Vital Signs Temp 37.1 C 09/23/22 12:15 Pulse 77 09/23/22 12:15 Resp 20 09/23/22 12:15 BP 144/83 H 09/23/22 12:15 Pulse Ox 97 09/23/22 12:15 O2 Del Method Room Air 09/23/22 12:15 Testing Laboratory Results 09/23/22 07:51 09/23/22 07:51 Urine Color Dark Yellow 09/22/22 05:54 Urine Appearance Cloudy (Clear) A 09/22/22 05:54 Urine pH 5.0 (4.5-7.5) 09/22/22 05:54 Ur Specific [place] 1.037 (1.000-1.030) H 09/22/22 05:54 Urine Protein Trace (Negative) H 09/22/22 05:54 Urine Glucose (UA) Negative (Negative) 09/22/22 05:54 Urine Ketones Trace (Negative) H 09/22/22 05:54 Urine Nitrite Positive (Negative) A 09/22/22 05:54 Ur Leukocyte Esterase Trace (Negative) H 09/22/22 05:54 Urine WBC (Auto) 1-5 /hpf (0-5) 09/22/22 05:54 Urine RBC (Auto) 0-4 /hpf (0-4) 09/22/22 05:54 U Hyaline Cast (Auto) 5-10 /lpf (0-5) H 09/22/22 05:54 U Epithel Cells (Auto) >30 /lpf (0-5) H 09/22/22 05:54 Urine Bacteria (Auto) 2+ (Negative) H 09/22/22 05:54 09/22/22 05:54 Urine Culture - Final Urine,Clean Catch More than three types of organisms present, all high counts mixed probable skin prakash - No further identifications or sensitivities to follow.
[2022-09-23] MEDS ORDERED: BUPIVACAINE 0.5 % 5 MG/1 ML MPF 30ML VIAL ONE (14:25)
--- NOTE | 2022-09-23 14:27 | Electrocardiogram Report ---
Test Reason : Blood Pressure : / mmHG Vent. Rate : 057 BPM Atrial Rate : 057 BPM P-R Int : 128 ms QRS Dur : 082 ms QT Int : 440 ms P-R-T Axes : 029 061 031 degrees QTc Int : 428 ms Sinus bradycardia Otherwise normal ECG No previous ECGs available Confirmed by Shmuel Rivas ([id number]) on 09/23/2022 2:26:55 PM Referred By: REFERRED SELF Confirmed By:Jamir Rivas
[2022-09-23] MEDS ORDERED: MIDAZOLAM HCL 1 MG/ML 2ML VIAL ONE (14:28)
[2022-09-23] MEDS ORDERED: fentaNYL citrate PF 100 MCG/2 ML VIAL ONE ×2 (14:28→15:11)
[2022-09-23] MEDS ORDERED: LIDOCAINE 2% 2 ML VIAL/AMP(20MG/ML) INFIL ONE (14:56)
[2022-09-23] MEDS ORDERED: diphenhydrAMINE 50 MG/ML VIAL ONE (14:56)
[2022-09-23] MEDS ORDERED: ONDANSETRON INJ 2 MG/ML 2 ML VIAL ONE (14:56)
[2022-09-23] MEDS ORDERED: PROPOFOL IV EMULSION 10 MG/ML 20 ML VIAL IV ONE (14:56)
[2022-09-23] MEDS ORDERED: DEXAMETHASONE SOD INJ 4 MG/ML VIAL ONE (14:56)
[2022-09-23] MEDS ORDERED: KETOROLAC 30 MG/ML VIAL ONE (15:21)
[2022-09-23] MEDS ORDERED: ROCURONIUM BROMIDE 10 MG/ML 5 ML VIAL IV ONE ×2 (15:21→15:22)
[2022-09-23] MEDS ORDERED: SUGAMMADEX SODIUM 200 MG/2 ML VIAL IV ONE (15:22)
[2022-09-23] MEDS ORDERED: HYDROmorphone INJ 2 MG/ML SYR/VIAL ONE (15:36)
--- NOTE | 2022-09-23 16:40 | Hospitalist Progress Note ---
Date of Service September 23, 2022 Assessment & Plan (1) Abdominal pain, epigastric: Plan: This may simply be a viral syndrome. Liver function enzymes are elevated on admission but have improved slightly since then. Gallbladder ultrasound is negative to for acute cholecystitis. MRCP reveals choledocholithiasis with a stone embedded in the duct. Surgery consultation appreciated. Laparoscopic cholecystectomy later today. Continue clear liquids for now with IV fluids. Symptomatic control measures. (2) UTI (urinary tract infection): Plan: Urine culture reveals mixed prakash. Urine is probably dark from hemoconcentration. No overt evidence of urinary tract infection at this time. However, she remains on intravenous Rocephin until the gallstones are dealt with. (3) Obesity: Plan: Weight loss recommended Plan Anticipate eventual discharge to home. Laparoscopic cholecystectomy today, September 23. Hopeful discharge to home soon thereafter Admission and Anticipated Discharge Date Admission Date: September 23, 2022 Subjective Alert and oriented. No new problems. She has been seen by surgery and will undergo laparoscopic cholecystectomy today, September 23. Preoperative chest x-ray and EKG are unremarkable. Liver enzymes have improved slightly from admission. Continue Rocephin for now, day 2. Urine culture reveals mixed prakash Review of Systems Review of Systems: Constitutional-no fever or chills ENT-no blurred vision, no double vision, no epistaxis, no sore throat Respiratory-no cough, no wheezing, no shortness of breath Cardiac-no palpitations, no chest pain, no syncope GI-epigastric discomfort unchanged. No rebound or guarding nausea and vomiting have resolved. No hematemesis. No melena - No urinary retention, no urinary incontinence, no hematuria Musculoskeletal-no joint pain, no muscle tenderness Skin-no bruising, no rashes, no pruritus Neuro-no isolated weakness, no paresthesia, no weakness Psych-no depression, no anxiety Physical Exam Physical Exam: General-alert and oriented x3. Obese . No distress HEENT-head atraumatic and normocephalic, pupils equal and reactive to light, extraocular muscles intact Neck-no lymphadenopathy or thyromegaly, trachea midline Chest-clear to auscultation percussion. No rales wheezing or rhonchi Cardiac-regular rate and rhythm, normal S1 and S2 Abdomen-normal bowel sounds, no hepatosplenomegaly. Epigastric tenderness. No rebound or guarding. No right upper quadrant tenderness Extremities-no cyanosis, clubbing, or edema Neuro-cranial nerves II through XII intact, motor and sensory function within normal limits, strength symmetrical , no focal deficits Psych-normal affect, normal mood Results & Data Results & Data Vital Signs (Past 12 Hours) Vital Signs Temp Pulse Pulse Resp BP Pulse Ox O2 Del Method 09/23/22 12:15 37.1 C 77 20 144/83 H 97 Room Air 09/23/22 07:59 36.6 C 72 18 138/80 98 Room Air Laboratory Results 09/23/22 07:51 09/23/22 07:51 PG Care Time/CCT Total # of Minutes Spent Total Time Spent with Patient: Total time spent is greater than 50% in coordination of care (as documented) at patient's floor/unit and/or counseling patient: Coding Level of Care Code 75548 SUB INP/OBS CARE 3/50MIN Diagnoses Abdominal pain, epigastric R10.13 UTI (urinary tract infection) N39.0 Obesity E66.9
--- NOTE | 2022-09-23 17:24 | Operative Report ---
PG Post Operative Report Pre & Post Diagnosis Operation Date: 09/23/22 10:50 Pre-Op Diagnosis: Acute calculous cholecystitis Post-Op Diagnosis: Acute calculous cholecystitis I identified the patient and participated in the time-out.: Yes Procedure Operation Date: 09/23/22 10:50 Actual Procedures p Robotic Laparoscopic Cholecystectomy(Not Applicable) - Maurilio Anaya DO, FACS Surgeon Maurilio Anaya DO, TODD [employer] Rec[employer]iter Raven Maria Estimated Blood Loss 15 Findings Consistent with Post-Op Diagnosis Acute calculus cholecystitis. Stone filled gallbladder. Stone impacted at infundibulum with short cystic duct. Gallbladder open, stone removed, cystic duct controlled with white loaded robotic stapler. Drain placed. Copious irrigation, good hemostasis. Specimens Gallbladder Anesthesia Type General Complications none Disposition Accompanied Patient To Recovery: No Disposition: Recovery Room Indications 27-year-old female presented with signs and symptoms of acute calculus cholecystitis. Plan for robotic assisted laparoscopic cholecystectomy the risks of the procedure were discussed, all questions were answered, and the patient agreed to proceed with surgery as planned. Description of Procedure The patient was properly identified, consented, and taken to the operating room where she was placed in the supine position. 2.5 mg of indocyanine green were administered IV approximately 45 min prior to the surgery. General endotracheal anesthesia was induced. SCDs and a safety belt were placed. Preoperative an tibiotics were administered. The patient's abdomen was prepped and draped in the standard sterile fashion. A surgical timeout was performed and all parties were in agreement that this was the correct patient and procedure to be performed and we continued as planned. An incision was made just above the umbilicus and to the right of midline. Veress needle was inserted and saline drop test confirmed entry to the abdomen. The abdomen was insufflated with carbon dioxide which the patient tolerated incident. Veress needle was removed and the abdomen is entered using the Optiview technique and a 5 mm camera. The introducer was removed and the abdomen inspected. No damage from initial trocar placement or Veress needle placement was identified. There were no significant abnormalities to the 4 quadrants of the abdomen. 8 mm robotic ports were then placed on the left and right. An additional 5 mm licensed occupational therapy assistant port was placed in the lateral right subcostal position. The patient was placed in reverse Trendelenburg position and rotated towards the left. The robot was then docked and the camera and robotic instruments were inserted. The gallbladder was contracted and acutely inflamed. Omental adhesions were taken down with electrocautery. The gallbladder appeared to be filled with stones. The dome of the gallbladder was grasped by the licensed occupational therapy assistant and retracted towards the left upper quadrant and the infundibulum was retracted toward the right lower quadrant revealing Calot's triangle. Peritoneal attachments were taken down with electrocautery and blunt dissection. There was a large stone impacted at the infundibulum with a very short cystic duct. A window of safety was obtained showing the cystic duct entering the gallbladder with no aberrant structures noted, however it is difficult to appreciate exact course of the cystic duct due to the size of the stone. We were able to identify the common bile duct utilizing the ICG, however the cystic duct only filled for 1 cm to the point where the stone was impacted. I then performed a dome down dissection technique. The gallbladder was opened distal to the stone and the stone was extracted. It was very soft and was broken into pieces which were suctioned. The cystic artery was clipped and divided. Once the stone was extracted, we attempted to use a large clip administration internship but this would not reach around the entire cystic duct remnant. We then chose to staple it. The left lateral port site was replaced with a 12 mm port and the robotic stapler was inserted with a white loaded stapler. This was then used to divide the cystic duct. There was still approximately a centimeter of distance to the cystic duct common duct junction. The right upper quadrant was irrigated and hemostasis was found to be good. A 1 0 mm flat DELVIS was then inserted and exited through the right upper quadrant incision. The gallbladder was placed in an Endo Catch bag and removed through the one of the port sites. The instruments were removed and the robot was undocked. The 12 mm port site fascia was closed with a [id number] 0 Vicryl suture utilizing a Gianfranco Fragoso device. The trochars were removed and the abdomen was allowed to collapse. The skin of all ports was closed with 4-0 Monocryl subcuticular sutures. Dermabond was placed over the wounds. A drain stitch was placed as was a drain dressing. Patient had a BMI of 43 which made the dissection and procedure more difficult and added time to the case The patient was extubated in the operating room and taken to the PACU where she recovered without apparent incident. All sponge, instrument and needle counts were correct at the conclusion of the procedure. The patient tolerated the procedure well. The physician's licensed occupational therapy assistant was present and scrubbed for the entirety of the case and was essential in positioning the patient, prepping and draping, retraction and exposure, driving the laparoscope, exchange of the robotic instruments removal of the gallbladder, closure of the incisions, and placement of the dressings. I attest to the content of the Intraoperative Record and any orders documented therein. Any exceptions are noted below.
--- NOTE | 2022-09-23 18:11 | Anesthesiology Progress Note ---
Date of Service September 23, 2022 Anesthesia Post Procedure Vital Signs Vital Signs: Temp Pulse Pulse Resp BP Pulse Ox O2 Del Method 09/23/22 18:00 37 C 93 H 14 159/68 H 95 Room Air 09/23/22 17:50 90 17 135/70 97 Oxymask 09/23/22 17:40 91 H 18 149/67 H 99 Oxymask 09/23/22 17:32 36 C L 103 H 22 161/81 H 97 Oxymask 09/23/22 12:15 37.1 C 77 20 144/83 H 97 Room Air 09/23/22 07:59 36.6 C 72 18 138/80 98 Room Air 09/22/22 20:00 Room Air 09/22/22 19:45 36.9 C 73 18 137/82 99 Room Air O2 Flow Rate 09/23/22 18:00 09/23/22 17:50 2 09/23/22 17:40 5 09/23/22 17:32 5 09/23/22 12:15 09/23/22 07:59 09/22/22 20:00 09/22/22 19:45 Pain Intensity Abdomen: Pain Intensity: 3 Transfer of Care Handoff Completed per policy Notes Mental Status: alert / awake / arousable and participated in evaluation Patient Amnestic to Procedure: Yes Nausea / Vomiting: adequately controlled Pain: adequately controlled Airway Patency, RR, SpO2: stable & adequate BP & HR: stable & adequate Hydration State: stable & adequate Anesthetic Complications: no major complications apparent and Pt Satisfied with anesthetic care
--- NOTE | 2022-09-23 18:18 | Anesthesiology Progress Note ---
Date of Service September 23, 2022 Anesthesia Post Procedure Vital Signs Vital Signs: Temp Pulse Pulse Resp BP Pulse Ox O2 Del Method 09/23/22 18:10 80 16 142/74 H 94 Room Air 09/23/22 18:00 37 C 93 H 14 159/68 H 95 Room Air 09/23/22 17:50 90 17 135/70 97 Oxymask 09/23/22 17:40 91 H 18 149/67 H 99 Oxymask 09/23/22 17:32 36 C L 103 H 22 161/81 H 97 Oxymask 09/23/22 12:15 37.1 C 77 20 144/83 H 97 Room Air 09/23/22 07:59 36.6 C 72 18 138/80 98 Room Air 09/22/22 20:00 Room Air 09/22/22 19:45 36.9 C 73 18 137/82 99 Room Air O2 Flow Rate 09/23/22 18:10 09/23/22 18:00 09/23/22 17:50 2 09/23/22 17:40 5 09/23/22 17:32 5 09/23/22 12:15 09/23/22 07:59 09/22/22 20:00 09/22/22 19:45 Pain Intensity Abdomen: Pain Intensity: 3 Transfer of Care Handoff Completed per policy Notes Mental Status: alert / awake / arousable Patient Amnestic to Procedure: Yes Nausea / Vomiting: adequately controlled Pain: adequately controlled Airway Patency, RR, SpO2: stable & adequate BP & HR: stable & adequate Hydration State: stable & adequate Anesthetic Complications: no major complications apparent
[2022-09-23] MEDS ORDERED: oxyCODONE HCL IR 5 MG TAB (IMMEDIATE RELEASE) PO PRN (18:32)
[2022-09-23] MEDS ORDERED: ACETAMINOPHEN 1,000 MG/100 ML VIAL IV PRN (18:32)
[2022-09-23] MEDS ORDERED: MoRPHine SULFATE 2 MG/ML CARP IV PRN (18:32)
[2022-09-23] MEDS: MoRPHine SULFATE 4 MG/ML 1 ML CARP\\VIAL IV PRN ×2 (19:25→22:22)
[2022-09-24] MEDS: MoRPHine SULFATE 4 MG/ML 1 ML CARP\\VIAL IV PRN ×5 (02:23→21:38)
[2022-09-24] MEDS: cefTRIAXone SODIUM 2,000 MG in DEXTROSE 5% 50 ML IV SCH (07:46)
[2022-09-24] MEDS: PANTOprazole 40 MG in SYRINGE 0 ML IV SCH ×2 (07:46→19:35)
[2022-09-24] MEDS: SODIUM CHLORIDE 0.9% 1000ML 1,000 ML IV SCH ×3 (07:46→21:37)
--- NOTE | 2022-09-24 09:01 | Surgery Progress Note ---
Date of Service September 24, 2022 Assessment & Plan (1) Acute calculous cholecystitis: Plan: POD#1 robot lap janelle Labs are still pending from this AM Continue clears until labs return, if LFTs okay can adv. diet as tolerates DELVIS drain serosang, continue for now Continue IV abx for now Will adjust APAP to be standing and continue pain meds prn, will also add toradol Will follow up Admission and Anticipated Discharge Date Admission Date: September 23, 2022 Supervising Physician Co-Signing Physician Notes Patient seen and examined, labs reviewed, agree with above. POD #1 robotic cholecystectomy for acute cholecystitis. Sore especially at left lower quadrant incision. Afebrile stable vitals, abdomen soft, probably tender to palpation. Ecchymosis at left lateral incision. DELVIS drain serosanguineous. WBC elevated postop day 1 as expected, liver enzymes downtrending. Diet as tolerated, complete 24 hours of IV antibiotics, hopeful for discharge tomorrow if pain improves. Subjective Patient seen, having some incisional abdominal pain. Tolerating small amount of clears, but not much appetite. Denies nausea/vomiting. Says she has been ambulating some. Physical Exam Physical Exam: awake/alert, no distress Respiratory: normal respiratory effort Gastrointestinal (Abdomen): Inspection/Auscultation: + abdominal surgical incision (c/d/i, ecchymosis of L incision) and + abdominal surgical drain present (serosang); abdomen not distended Percussion/Palpation: + abdomen tender (mely incisional discomfort) and abdomen soft Results & Data Vital Signs (Past 12 Hours) Vital Signs Temp Pulse Resp BP Pulse Ox O2 Del Method 09/24/22 07:34 36.9 C 79 18 144/85 H 98 Room Air 09/24/22 01:57 36.6 C 62 16 146/80 H 100 Room Air 09/23/22 21:30 36.9 C 98 H 16 142/75 H 98 Room Air PG Care Time/CCT Total # of Minutes Spent Total Time Spent with Patient: Total time spent is greater than 50% in coordination of care (as documented) at patient's floor/unit and/or counseling patient: Coding Level of Care Code 32441 Post Operative Follow-Up Diagnoses Acute calculous cholecystitis K80.00
[2022-09-24] MEDS: ACETAMINOPHEN 1,000 MG/100 ML VIAL IV SCH ×2 (10:21→17:09)
[2022-09-24] MEDS: oxyCODONE HCL IR 5 MG TAB (IMMEDIATE RELEASE) PO PRN ×4 (10:22→23:34)
[2022-09-24 10:25] LABS: Basophils # (auto) 0.01 K/uL (0-0.2); Basophils % (auto) 0.1 %; Eosinophils # (auto) 0.02 K/uL (0-0.50); Eosinophils % (auto) 0.1 %; Hematocrit (blood only) 35.5 % (37.0-47.0); Hemoglobin 11.4 g/dl (12.0-16.0); Immature Granulocytes # (auto) 0.06 K/uL (0.01-0.20); Immature Granulocytes % (auto) 0.4 %; Lymphocytes # (auto) 1.86 K/uL (1.2-3.4); Lymphocytes % (auto) 11.1 %; Mean Corpuscular Hemoglobin 26.2 pg (25.0-34.0); Mean Corpuscular Hgb Conc 32.1 g/dL (32.0-36.0); Mean Corpuscular Volume 81.6 fL (80.0-100.0); Mean Platelet Volume 10.1 fL (9.4-12.4); Monocytes # (auto) 1.04 K/uL (0.11-0.59); Monocytes % (auto) 6.2 %; Neutrophils # (auto) 13.72 K/uL (1.40-6.50); Neutrophils % (auto) 82.1 %; Platelet Count 337 K/uL (130-400); RDW Standard Deviation 44.4 fL (36.4-46.3); Red Blood Count 4.35 M/uL (4.20-5.40); White Blood Count 16.71 K/ul (4.8-10.8)
[2022-09-24 10:41] LABS: Albumin Globulin Ratio 1.2 (0.9-2); Albumin Level 3.8 gm/dl (3.4-5.0); BUN Creatinine Ratio 8.2 (10-20); Bilirubin Direct 0.1 mg/dl (0-0.2); Bilirubin,Total 0.4 mg/dl (0.2-1.0); Calcium 8.6 mg/dl (8.6-10.3); Creatinine Clr Calc Pharmacy 186.6 ml/min; Est GFR (Non-African American) 125.1 ml/min; Globulin 3.1 gm/dl (2.5-4.0); Potassium 3.7 mmol/L (3.5-5.1); Total Protein 6.9 gm/dl (6.0-8.3)
[2022-09-24] MEDS ORDERED: HYDROCORTISONE 2.5% CR 30 GM TUBE EXT PRN (13:15)
--- NOTE | 2022-09-24 15:55 | Hospitalist Progress Note ---
Date of Service September 24, 2022 Assessment & Plan (1) Abdominal pain, epigastric: Plan: Acute cholecystitis described by surgery. Postoperative day 1 after laparoscopic cholecystectomy. Liver function enzymes continue to improve. MRCP revealed choledocholithiasis with a stone embedded in the duct. Surgery consultation and recommendations appreciated. Diet has been advanced. IV fluids have been tapered down. Postoperative right upper quadrant drain remains in place (2) UTI (urinary tract infection): Plan: Urine culture reveals mixed prakash. Urine is probably dark from hemoconcentration. No overt evidence of urinary tract infection at this time. (3) Obesity: Plan: Weight loss recommended Plan Anticipate eventual discharge to home. Laparoscopic cholecystectomy completed on September 23. Hopeful discharge to home soon Admission and Anticipated Discharge Date Admission Date: September 23, 2022 Subjective Alert and oriented. Postoperative day #1 after laparoscopic cholecystectomy. Surgery described the gallbladder is acute cholecystitis. Liver enzymes are trending down. Diet has been advanced and IV fluids have been tapered down. Tracey quinn is requesting cortisone cream for pruritic eczema which is chronic. Right upper quadrant drain remains in place. Hopefully she can go home soon Review of Systems Review of Systems: Constitutional-no fever or chills ENT-no blurred vision, no double vision, no epistaxis, no sore throat Respiratory-no cough, no wheezing, no shortness of breath Cardiac-no palpitations, no chest pain, no syncope GI-postoperative right upper quadrant discomfort as expected. Nausea vomiting have resolved. No melena - No urinary retention, no urinary incontinence, no hematuria Musculoskeletal-no joint pain, no muscle tenderness Skin-no bruising, no rashes, no pruritus Neuro-no isolated weakness, no paresthesia, no weakness Psych-no depression, no anxiety Physical Exam Physical Exam: General-alert and oriented x3. Obese . No distress HEENT-head atraumatic and normocephalic, pupils equal and reactive to light, extraocular muscles intact Neck-no lymphadenopathy or thyromegaly, trachea midline Chest-clear to auscultation percussion. No rales wheezing or rhonchi Cardiac-regular rate and rhythm, normal S1 and S2 Abdomen-normal bowel sounds, no hepatosplenomegaly. Mild discomfort at operative sites in the abdomen as expected. No rebound or guarding. Extremities-no cyanosis, clubbing, or edema Neuro-cranial nerves II through XII intact, motor and sensory function within normal limits, strength symmetrical , no focal deficits Psych-normal affect, normal mood Results & Data Results & Data Vital Signs (Past 12 Hours) Vital Signs Temp Pulse Resp BP Pulse Ox O2 Del Method 09/24/22 11:20 36.4 C L 66 17 124/70 94 Room Air 09/24/22 07:34 36.9 C 79 18 144/85 H 98 Room Air Laboratory Results 09/24/22 09:54 09/24/22 09:54 PG Care Time/CCT Total # of Minutes Spent Total Time Spent with Patient: Total time spent is greater than 50% in coordination of care (as documented) at patient's floor/unit and/or counseling patient: Coding Level of Care Code 87956 SUB INP/OBS CARE 3/50MIN Diagnoses Abdominal pain, epigastric R10.13 UTI (urinary tract infection) N39.0 Obesity E66.9
[2022-09-25] MEDS: ACETAMINOPHEN 1,000 MG/100 ML VIAL IV SCH ×2 (01:09→10:01)
[2022-09-25] MEDS: KETOROLAC TROMETHAMINE 15 MG/ML VIAL IV PRN ×2 (02:09→11:52)
[2022-09-25] MEDS: oxyCODONE HCL IR 5 MG TAB (IMMEDIATE RELEASE) PO PRN ×2 (05:41→13:57)
[2022-09-25] MEDS: ONDANSETRON INJ 2 MG/ML 2 ML VIAL IV PRN (05:52)
[2022-09-25] MEDS: MoRPHine SULFATE 4 MG/ML 1 ML CARP\\VIAL IV PRN (05:52)
[2022-09-25] MEDS: cefTRIAXone SODIUM 2,000 MG in DEXTROSE 5% 50 ML IV SCH (07:39)
[2022-09-25 08:44] LABS: Basophils # (auto) 0.03 K/uL (0-0.2); Basophils % (auto) 0.3 %; Eosinophils # (auto) 0.14 K/uL (0-0.50); Eosinophils % (auto) 1.3 %; Hematocrit (blood only) 35.4 % (37.0-47.0); Hemoglobin 11.3 g/dl (12.0-16.0); Immature Granulocytes # (auto) 0.03 K/uL (0.01-0.20); Immature Granulocytes % (auto) 0.3 %; Lymphocytes # (auto) 2.41 K/uL (1.2-3.4); Lymphocytes % (auto) 22.2 %; Mean Corpuscular Hgb Conc 31.9 g/dL (32.0-36.0); Mean Corpuscular Volume 84.7 fL (80.0-100.0); Mean Platelet Volume 9.9 fL (9.4-12.4); Monocytes # (auto) 0.63 K/uL (0.11-0.59); Monocytes % (auto) 5.8 %; Neutrophils # (auto) 7.62 K/uL (1.40-6.50); Neutrophils % (auto) 70.1 %; Platelet Count 285 K/uL (130-400); RDW Coefficient of Variation 15.1 % (11.5-14.5); RDW Standard Deviation 46.2 fL (36.4-46.3); Red Blood Count 4.18 M/uL (4.20-5.40); White Blood Count 10.86 K/ul (4.8-10.8)
[2022-09-25 09:03] LABS: Albumin Globulin Ratio 1.1 (0.9-2); Albumin Level 3.5 gm/dl (3.4-5.0); BUN Creatinine Ratio 7.9 (10-20); Bilirubin,Total 0.4 mg/dl (0.2-1.0); Calcium 8.1 mg/dl (8.6-10.3); Creatinine Clr Calc Pharmacy 180.7 ml/min; Est GFR (African American) 143.5 ml/min; Est GFR (Non-African American) 123.8 ml/min; Globulin 3.1 gm/dl (2.5-4.0); Potassium 3.3 mmol/L (3.5-5.1); Total Protein 6.6 gm/dl (6.0-8.3)
[2022-09-25] MEDS ORDERED: POTASSIUM CHLORIDE CRTAB 20 MEQ TABCR PO ONE (09:48)
[2022-09-25] MEDS: PANTOprazole 40 MG in SYRINGE 0 ML IV SCH (10:00)
--- NOTE | 2022-09-25 12:14 | Discharge Summary ---
Date of Service September 25, 2022 Admission HPI Per Admitting Provider 27-year-old white female in good health except for obesity. For the past 3 to 4 days she has had epigastric pain nausea and vomiting. She presented to the ED for evaluation since she began feeling dizzy and the urine became darker. She apparently has some mild volume depletion. Liver function enzymes are elevated. Gallbladder ultrasound was negative. This probably represents a viral illness although choledocholithiasis needs to be ruled out. She will be placed in observation status. MRCP is pending. If this is abnormal then GI consultation will be requested. She denies any recent alcohol intake, frequent marijuana use, or illicit drug use. She also has an apparent UTI. She has received Rocephin which will be discontinued. Urine cultures pending. Principal Diagnosis Acute cholecystitis, elevated liver enzymes Discharge Exam General-alert and oriented x3. Obese . No distress HEENT-head atraumatic and normocephalic, pupils equal and reactive to light, extraocular muscles intact Neck-no lymphadenopathy or thyromegaly, trachea midline Chest-clear to auscultation percussion. No rales wheezing or rhonchi Cardiac-regular rate and rhythm, normal S1 and S2 Abdomen-normal bowel sounds, no hepatosplenomegaly. Mild discomfort at operative sites in the abdomen as expected. No rebound or guarding. Extremities-no cyanosis, clubbing, or edema Neuro-cranial nerves II through XII intact, motor and sensory function within normal limits, strength symmetrical , no focal deficits Psych-normal affect, normal mood Discharge Data Allergies Allergy/AdvReac Type Severity Reaction Status Date / Time nickel Allergy Intermediate Rash Verified 09/23/22 01:28 Consultations 09/22/22 08:16 ED Decision to Admit Stat 09/22/22 16:18 Consult General Surgery Routine Procedures Performed Operation Date: 09/23/22 10:50 Actual Procedures p Robotic Laparoscopic Cholecystectomy(Not Applicable) - Maurilio Anaya DO, FACS Ordered Studies 09/22/22 06:44 US gallbladder Stat 09/22/22 09:04 MR MRCP Stat Hospital Course (1) Abdominal pain, epigastric: Acute cholecystitis described by surgery. Postoperative day 2 after laparoscopic cholecystectomy. Liver function enzymes have nearly returned to normal. MRCP revealed choledocholithiasis with a stone embedded in the duct. Surgery consultation and recommendations appreciated. Diet has been advanced. IV fluids have been discontinued today, September 25. Surgical drain will be removed either today by surgery or in the office at follow-up (2) UTI (urinary tract infection): Urine culture reveals mixed prakash. Urine is probably dark from hemoconcentration. No overt evidence of urinary tract infection at this time. (3) Obesity: Weight loss recommended Plan Home today, September 25 Total Time Total Time Spent Total Time Spent (In Minutes): 45 minutes Discharge Plan Discharge Items Patient Disposition: Home - Self-Care Reason For Visit: EPIGASTRIC PAIN, UTI Discharge Diagnosis: laparoscopic cholecystectomy . Acute cholecystitis with elevated liver enzymes Activity: Per Instructions section Lifting: No more than 10 pounds Bathing Comment: may shower starting 09/24/22; no soaking in tubs/pools x 2 weeks Exercise/Sports: Wait until after follow-up appointment Driving/Machine Use: no driving while taking narcotics for pain Non-emergency contact: Primary Care Provider and Surgeon Call non-emergency contact if: you have any medication questions, your symptoms worsen, your pain is not controlled, you have a fever, your temperature is above 101.5, your wound has increased redness, your wound has increased drainage and your wound pain has increased Follow-up/Referrals: Maurilio Anaya DO, FACS [Physician] - (Please call to schedule follow up in clinic within 2 weeks) PCP,NO [Primary Care Provider] - Diet: Regular Addtl Attending Provider Instructions: You have skin glue over your incisions called dermabond. you may shower with this on. It will tend to dissolve and fall off within a couple weeks. Do not pick at the skin glue Pending Studies at Discharge: Yes Studies:: surgical pathology Stand-Alone Forms: My [facility], Smoking Cessation Medications and DC Order Prescriptions: New hydrocodone-acetaminophen 5-325 mg tablet 1 tab PO Q6H PRN (Reason: pain) Qty: 14 0RF Discharge Orders: Discharge Order (Routine); Ordered 09/25/22 Ordered By: Cristofer Solis Admission Data Admit Date/Time: 09/23/22 10:26 Attending Provider: Cristofer Solis Admit Provider: Cristofer Solis Primary Care Provider: PCP,NO Other Providers: Cristofer Solis ; Cristofer Callahan ; Levi Thompson ; Aniceto Pérez ; Jose Elias Haley ; Alexandre De Anda ; Maurilio Anaya ; Raven Maria ; Joni Mayorga ; Ran Ley ; Gisselle Fajardo ; Stan Lay. Coding Level of Care Code 94653 INP/OBS DISCH >30 MIN Diagnoses Abdominal pain, epigastric R10.13 UTI (urinary tract infection) N39.0 Obesity E66.9
--- NOTE | 2022-09-25 13:53 | Surgery Progress Note ---
Date of Service September 25, 2022 Assessment & Plan (1) Hx laparoscopic cholecystectomy: Plan: POD #2 robotic cholecystectomy, doing well DC drain Okay to discharge to home No additional antibiotics needed from surgery perspective Wound care instructions, activity restrictions, and return precautions given Follow-up in general surgery clinic in 2 weeks Return precautions given, call with questions or concerns Admission and Anticipated Discharge Date Admission Date: September 23, 2022 Subjective POD #2 robotic cholecystectomy for acute cholecystitis with cystic duct stone requiring use of stapler. Pain improving, tolerating regular diet, symptoms from prior to surgery are improved. Most pain at 12 mm port site. Physical Exam Constitutional: WD/WN, vitals as above + obese Gastrointestinal (Abdomen): Inspection/Auscultation: + abdominal wall ecchymosis (Left lateral port site) and + abdominal surgical incision Percussion/Palpation: + abdomen tender (Appropriately tender to palpation) Results & Data Vital Signs (Past 12 Hours) Vital Signs Temp Pulse Resp BP Pulse Ox O2 Del Method 09/25/22 07:55 36.8 C 67 18 135/82 97 Room Air Laboratory Results Laboratory Results - last 24 hr 09/25/22 09/25/22 08:20 08:20 WBC 10.86 H RBC 4.18 L Hgb 11.3 L Hct 35.4 L MCV 84.7 MCH 27.0 MCHC 31.9 L RDW Std Deviation 46.2 RDW Coeff of Jessica 15.1 H Plt Count 285 MPV 9.9 Immature Gran % (Auto) 0.3 Neut % (Auto) 70.1 Lymph % (Auto) 22.2 Weston % (Auto) 5.8 Eos % (Auto) 1.3 Baso % (Auto) 0.3 Neut # (Auto) 7.62 H Lymph # (Auto) 2.41 Weston # (Auto) 0.63 H Eos # (Auto) 0.14 Baso # (Auto) 0.03 Immature Gran # (Auto) 0.03 Sodium 137 Potassium 3.3 L Chloride 105 Carbon Dioxide 25 Anion Gap 7 BUN 5 L Creatinine 0.63 Est Cr Clr Drug Dosing 180.7 Est GFR ( Amer) 143.5 Est GFR (Non-Af Amer) 123.8 BUN/Creatinine Ratio 7.9 L Glucose 88 Calcium 8.1 L Total Bilirubin 0.4 AST 30 ALT 167 H Alkaline Phosphatase 113 H Total Protein 6.6 Albumin 3.5 Globulin 3.1 Albumin/Globulin Ratio 1.1 PG Care Time/CCT Total # of Minutes Spent Total Time Spent with Patient: Total time spent is greater than 50% in coordination of care (as documented) at patient's floor/unit and/or counseling patient: Coding Level of Care Code 92357 Post Operative Follow-Up Diagnoses Hx laparoscopic cholecystectomy Z90.49
== END 2022-09-25 16:32 | disposition home or self-care (01) | DRG 418 ==
LOC: EDINP 05:32 → ED 05:32 → 3N 19:35